=== PATIENT | male | born 1960 | race Caucasian/White ===

== ENCOUNTER 2018-05-08 22:09 | Inpatient (IN) | payer SELFPAY ==
[~2018-05-08] VITALS: Ht 160 cm; Wt 105.2 kg
[~2018-05-08 22:09] MED LIST: NO MEDS
[2018-05-09] MEDS ORDERED: MORPHINE SULFATE 4 MG/ML CPJ (NOT FOR IM USE) IV STA (02:41)
[2018-05-09] MEDS ORDERED: ONDANSETRON HCL 4MG/2ML INJ IV STA (02:41)
[2018-05-09] MEDS ORDERED: VANCOMYCIN 1 G PREMIX 200 ML IV SCH ×2 (02:45→09:45)
[2018-05-09] MEDS ORDERED: PIPERACILLIN/TAZOBACTAM 3.375GM/50ML PREMIX IV ONE (02:45)
[2018-05-09] MEDS ORDERED: TETANUS, DIPHTHERIA, PERTUSSIS VAC/PF 0.5ML (>7YR OLD) IM ONE (03:00)
[2018-05-09 03:30] LABS: BASOPHILS % 0.9 % (0.0-2.0); EOSINOPHILS % 2.4 % (0.0-5.0); HEMATOCRIT. 42.4 % (42.0-52.0); HEMOGLOBIN. 14.5 g/dL (14.0-18.0); LYMPHOCYTES % 27.1 % (20.0-50.0); MEAN CORPUSCULAR HEMOGLOBIN 30.6 pg (28.0-32.0); MEAN CORPUSCULAR VOLUME 89.3 fL (80.0-94.0); MEAN PLATELET VOLUME 8.7 fl (7.4-10.4); MONOCYTES % 10.7 % (2.0-8.0); NEUTROPHILS % 58.9 % (40.0-76.0); PLATELET 270 x1000/uL (130-400); RED BLOOD CELL COUNT 4.75 mill/uL (4.7-6.1); RED CELL DISTRIBUTION WIDTH 13.7 % (11.6-14.6)
[2018-05-09 03:43] LABS: CHLORIDE 104 mEq/L (98-107)
[2018-05-09] MEDS ORDERED: IBUPROFEN 600MG TABLET PO PRN (04:30)
[2018-05-09] MEDS ORDERED: PIPERACILLIN/TAZ 3.375G PREMIX 50 ML IV SCH (06:15)
[2018-05-09] MEDS ORDERED: DIPHENHYDRAMINE 50MG/ML VIAL IV ONE (06:15)
[2018-05-09 09:00] VITALS: BP 125/79
[2018-05-09] MEDS ORDERED: ONDANSETRON HCL 4MG/2ML INJ IV PRN (09:45)
[2018-05-09] MEDS ORDERED: ENOXAPARIN 40MG/0.4ML SYR SUBCUT SCH (09:45)
[2018-05-09] MEDS ORDERED: NITROGLYCERIN 0.4MG TABLET SL SL PRN (09:45)
[2018-05-09] MEDS ORDERED: IPRATROPIUM/ALBUTEROL 0.5-3(2.5)MG/3ML NEB INH PRN (09:45)
[2018-05-09] MEDS ORDERED: GUAIFENESIN 200MG/10ML SUGAR FREE UDC PO PRN (09:45)
[2018-05-09] MEDS ORDERED: DOCUSATE SODIUM 100MG CAPSULE PO PRN (09:45)
[2018-05-09] MEDS ORDERED: MAGNESIUM/ALUMINUM HYDROXIDE/SIMETHICONE 30ML UDC PO PRN (09:45)
[2018-05-09] MEDS ORDERED: CLONIDINE 0.1MG TABLET PO PRN (09:45)
[2018-05-09] MEDS ORDERED: ACETAMINOPHEN 325MG TABLET PO PRN (09:45)
[2018-05-09] MEDS: METOPROLOL TARTRATE 25MG TABLET PO SCH ×2 (10:00→21:00)
[2018-05-09] MEDS ORDERED: KETOROLAC 15MG/ML VIAL IV PRN (10:15)
[2018-05-09] MEDS: ZINC SULFATE 220 MG ( 50 ) CAPSULE PO SCH (11:30)
[2018-05-09] MEDS: FAMOTIDINE 20MG TABLET PO SCH ×2 (11:30→21:11)
[2018-05-09] MEDS: ASCORBIC ACID 500 MG TABLET PO SCH ×2 (11:30→21:11)
[2018-05-09] MEDS: ENOXAPARIN 40MG/0.4ML SYR SUBCUT SCH ×2 (11:31→21:11)
[2018-05-09 12:00] VITALS: BP 127/80
[2018-05-09] MEDS: VANCOMYCIN 1250MG in DEXTROSE 5% WATER 250ML IV SCH (12:19)
[2018-05-09] MEDS ORDERED: ACET-2178 MT (13:31)
[2018-05-09] MEDS ORDERED: ASPI-1153 PO (13:31)
[2018-05-09] MEDS: PIPERACILLIN/TAZ 3.375G PREMIX 50 ML IV SCH ×2 (14:09→21:11)
[2018-05-09 16:00] VITALS: BP 101/58
[2018-05-09] MEDS ORDERED: IOHEXOL-300 100 ML BOTTLE ONE (16:50)
[2018-05-09 20:00] VITALS: BP 134/72
[2018-05-09] MEDS ORDERED: INFLUENZA VIRUS VACCINE(AFLURIA) 0.5ML SYR IM ONE (20:15)
[2018-05-09] MEDS ORDERED: ZOLPIDEM TARTRATE 5MG TABLET PO PRN (21:00)
[2018-05-10] VITALS: BP 104/65
[2018-05-10] MEDS: VANCOMYCIN 1250MG in DEXTROSE 5% WATER 250ML IV SCH ×2 (00:33→10:24)
[2018-05-10] MEDS: TRAMADOL 50MG TABLET PO PRN ×2 (00:46→08:54)
[2018-05-10 04:00] VITALS: BP 111/61
[2018-05-10] MEDS: PIPERACILLIN/TAZ 3.375G PREMIX 50 ML IV SCH (05:44)
[2018-05-10 08:00] VITALS: BP 118/61
[2018-05-10] MEDS: ASCORBIC ACID 500 MG TABLET PO SCH (08:53)
[2018-05-10] MEDS: ZINC SULFATE 220 MG ( 50 ) CAPSULE PO SCH (08:53)
[2018-05-10] MEDS: FAMOTIDINE 20MG TABLET PO SCH (08:55)
[2018-05-10] MEDS: METOPROLOL TARTRATE 25MG TABLET PO SCH (08:55)
[2018-05-10] MEDS: ENOXAPARIN 40MG/0.4ML SYR SUBCUT SCH (08:55)
[2018-05-10 11:38] VITALS: BP 141/89
[2018-05-10 12:00] VITALS: BP 141/89
[2018-05-10] MEDS ORDERED: PIPERACILLIN/TAZ 3.375G PREMIX 50 ML IV SCH (15:29)
[2018-05-10] MEDS ORDERED: ENOXAPARIN 30MG/0.3ML SYR SUBCUT SCH (21:00)
== END 2018-05-10 16:00 | disposition home or self-care (01) | DRG 383 ==
LOC: ER 22:09 → 6EST 05-09 04:24 → EDBEDREQ 05-09 04:29 → EDBEDREQTM 05-09 04:29 → ENRESERV 05-09 07:18
PROVIDERS: ADMIT Internal Medicine; ATTEND Internal Medicine
DX: L03.116 Cellulitis of left lower limb (principal); Z68.41 Body mass index [BMI] 40.0-44.9, adult; E66.9 Obesity, unspecified; S80.12XA Contusion of left lower leg, initial encounter; Z53.20 Procedure and treatment not carried out because of patient's decision for unspecified reasons; K59.00 Constipation, unspecified; F17.200 Nicotine dependence, unspecified, uncomplicated; W51.XXXA Accidental striking against or bumped into by another person, initial encounter; Y99.8 Other external cause status; Y93.66 Activity, soccer; Y92.322 Soccer field as the place of occurrence of the external cause; Z71.3 Dietary counseling and surveillance
CPT/HCPCS: 36415; 73590; 73701; 80061; 83036; 83605; 87070; 87077; 87186; 90471; 90686; 90715; 93971; 96361; 96374; 96375; 99285; J1200; J1650; J2270; J2405; J2543; J3370; J7060; Q9967

== ENCOUNTER 2024-10-25 17:52 | Emergency (ER) | payer SELFPAY ==
[~2024-10-25] VITALS: Ht 160 cm; Wt 98.0 kg
[~2024-10-25 17:52] MED LIST changes: +ASPI-1153 PO; +TOPUD MT
[2024-10-25 17:57] VITALS: O2SAT 98
[2024-10-25 17:58] VITALS: BP 133/84; PULSE 95; RESP 18; TEMP 36.9; O2SAT 98
[2024-10-25] MEDS: ACETAMINOPHEN 500MG TABLET PO ONE (18:55)
[2024-10-25] MEDS: TETANUS, DIPHTHERIA, PERTUSSIS VAC/PF 0.5ML (>10YR OLD) IM ONE (18:55)
[2024-10-25] MEDS: BACITRACIN ZINC OINT UDPKT TOP ONE (18:56)
[2024-10-25] MEDS ORDERED: AMOX1TAB16 MT (19:58)
[2024-10-25] MEDS ORDERED: ACET-2708 MT (19:58)
== END 2024-10-25 20:53 | disposition home or self-care (01) ==
LOC: ER 17:52
DX: S81.832A Puncture wound without foreign body, left lower leg, initial encounter (principal); W54.0XXA Bitten by dog, initial encounter; Y93.89 Activity, other specified; Y92.89 Other specified places as the place of occurrence of the external cause; Y99.8 Other external cause status
CPT/HCPCS: 73090; 73120; 73590; 90715; 29125; 90471; 99284; Z7610

== ENCOUNTER 2024-10-31 12:05 | Inpatient (IN) | payer MEDICAID ==
[~2024-10-31] VITALS: Ht 167.6 cm; Wt 98.9 kg
[~2024-10-31 12:05] MED LIST changes: +ACET-2708 MT; +AMOX1TAB16 MT
[2024-10-31 12:23] VITALS: O2SAT 98
[2024-10-31 12:59] LABS: BASOPHILS % 0.7 % (0.0-2.0); EOSINOPHILS % 1.4 % (0.0-5.0); HEMATOCRIT. 31.0 % (42.0-52.0); HEMOGLOBIN. 10.5 g/dL (14.0-18.0); LYMPHOCYTES % 16.2 % (20.0-50.0); MEAN PLATELET VOLUME 9.1 fl (7.4-10.4); MONOCYTES % 7.3 % (2.0-8.0); NEUTROPHILS % 74.4 % (40.0-76.0); PLATELET 250 x1000/uL (130-400); RED BLOOD CELL COUNT 3.49 mill/uL (4.7-6.1); RED CELL DISTRIBUTION WIDTH 13.9 % (11.6-14.6)
[2024-10-31 13:07] LABS: INR 1.0
[2024-10-31 13:13] LABS: CREATININE 1.1 mg/dL (0.6-1.3); TROPONIN I HIGH SENSITIVITY < 4 ng/L (3.0-53); UREA NITROGEN BLOOD 26 mg/dL (9-23)
[2024-10-31 13:15] LABS: ASPARTATE AMINOTRANSFERASE 14 IU/L (<34); BILIRUBIN DIRECT 0.1 mg/dL (<=3.0); BILIRUBIN TOTAL 0.4 mg/dL (0.1-1.0); PROTEIN TOTAL 7.2 g/dL (6.0-8.3)
[2024-10-31] MEDS: PANTOPRAZOLE SODIUM 40 MG/VIAL IV ONE (13:36)
[2024-10-31] MEDS: IOHEXOL-300 100 ML BOTTLE ONE (14:25)
[2024-10-31] MEDS: PANTOPRAZOLE 80 MG in SODIUM CHLORIDE 0.9% 100 ML IV SCH (15:08)
[2024-10-31] MEDS ORDERED: ONDANSETRON HCL 4MG/2ML INJ IV PRN (15:15)
[2024-10-31] MEDS ORDERED: ACETAMINOPHEN 325MG TABLET PO PRN (15:15)
[2024-10-31] MEDS ORDERED: DOCUSATE SODIUM 100MG CAPSULE PO PRN (15:15)
[2024-10-31] MEDS ORDERED: IPRATROPIUM/ALBUTEROL 0.5-3(2.5)MG/3ML NEB HHN PRN (15:15)
[2024-10-31] MEDS ORDERED: GUAIFENESIN 200MG/10ML SUGAR FREE UDC PO PRN (15:15)
[2024-10-31] MEDS ORDERED: MAGNESIUM/ALUMINUM HYDROXIDE/SIMETHICONE 30ML UDC PO PRN (15:15)
[2024-10-31] MEDS ORDERED: CLONIDINE 0.1MG TABLET PO PRN (15:15)
[2024-10-31] MEDS: PIPERACILLIN/TAZO 3.375G/50ML 50 ML IV NR (15:52)
[2024-10-31] MEDS ORDERED: DEXTROSE 50% WATER 50ML SYRINGE IV PRN (16:00)
[2024-10-31] MEDS: IOHEXOL-350 100 ML BOTTLE ONE ×2 (16:04→23:14)
[2024-10-31 16:54] LABS: FOLIC ACID (FOLATE) SERUM > 20.00 ng/mL (>5.38); VITAMIN B12 SERUM 607 pg/mL (211-911)
[2024-10-31 17:00] VITALS: BP 130/89; PULSE 85; RESP 15; TEMP 36.7516
[2024-10-31] MEDS ORDERED: VANCOMYCIN 1.5GM PMX (XELLIA) 300 ML IV NR (17:00)
[2024-10-31 17:25] LABS: TRIGLYCERIDE 239.0 mg/dL (0-150)
[2024-10-31 17:26] LABS: LDL CHOLESTEROL 94.0 mg/dL (5-100)
[2024-10-31] MEDS: SUCRALFATE 1G TABLET PO SCH (17:30)
[2024-10-31] MEDS: BLOOD SUGAR DIAGNOSTIC STRIP TEST SCH (17:54)
[2024-10-31 18:00] VITALS: BP 123/76; PULSE 107; RESP 23; O2SAT 99
[2024-10-31] MEDS: INSULIN LISPRO 100 UNITS/ML SUBCUT SCH (18:00)
[2024-10-31 19:18] LABS: INR 1.0
[2024-10-31 20:00] VITALS: BP 113/79; PULSE 101; RESP 13; O2SAT 99
[2024-10-31] MEDS: PANTOPRAZOLE SODIUM 40 MG/VIAL IV SCH (21:39)
[2024-10-31] MEDS: PIPERACILLIN/TAZO 3.375G/50ML 50 ML IV SCH (21:40)
[2024-10-31 22:00] VITALS: BP 112/87; PULSE 98; RESP 25; TEMP 36.9; O2SAT 99
[2024-10-31] MEDS: VANCOMYCIN 1.5GM PMX (XELLIA) 300 ML IV NR (22:00)
[2024-10-31 23:54] LABS: CREATINE KINASE MB FRACTION < 0.5 ng/mL (0.5-3.6); TROPONIN I HIGH SENSITIVITY < 4 ng/L (3.0-53)
[2024-11-01] VITALS (9 sets, daily range): BP systolic 92–135; BP diastolic 59–83; PULSE 84–100; RESP 16–22; TEMP 36.4–36.9; O2SAT 97–100
[2024-11-01] MEDS: ACETAMINOPHEN 325MG TABLET PO PRN (00:14)
[2024-11-01] MEDS: LACTATED RINGERS 1,000 ML IV SCH (03:35)
[2024-11-01] MEDS: VANCOMYCIN 750MG PREMIX 150 ML IV SCH ×2 (07:25→11:09)
[2024-11-01 07:57] LABS: CLARITY URINE CLEAR (CLEAR); COLOR URINE YELLOW (YELLOW); GLUCOSE URINE NEGATIVE (NEGATIVE); KETONES URINE NEGATIVE (NEGATIVE); LEUKOCYTE ESTERASE URINE NEGATIVE (NEGATIVE); NITRITE URINE NEGATIVE (NEGATIVE); OCCULT BLOOD URINE NEGATIVE (NEGATIVE); PH URINE 5.5 (4.5-8.0); PROTEIN URINE TRACE (NEGATIVE); SPECIFIC GRAVITY URINE 1.075 (1.005-1.030); UROBILINOGEN URINE 0.2 E.U./dL (0.2-1.0)
[2024-11-01] MEDS: MULTIVITAMINS,THER W-MINERALS TABLET PO SCH (08:06)
[2024-11-01 08:20] LABS: *AMPHETAMINES SCREEN URINE NEGATIVE (NEGATIVE); *BENZODIAZEPINES SCREEN URINE NEGATIVE (NEGATIVE)
[2024-11-01 08:21] LABS: *BARBITURATES SCREEN URINE NEGATIVE (NEGATIVE); *COCAINE SCREEN URINE NEGATIVE (NEGATIVE); CANNABINOID URINE SCREEN NEGATIVE (NEGATIVE); METHADONE URINE SCREEN NEGATIVE (NEGATIVE); OPIATES URINE SCREEN NEGATIVE (NEGATIVE); PHENCYCLIDINE URINE SCREEN NEGATIVE (NEGATIVE)
[2024-11-01 08:22] LABS: ECSTASY MDMA SCREEN URINE NEGATIVE (NEGATIVE)
[2024-11-01 08:23] LABS: CREATININE 1.0 mg/dL (0.6-1.3)
[2024-11-01 08:24] LABS: CREATINE KINASE MB FRACTION < 0.5 ng/mL (0.5-3.6); LDL CHOLESTEROL 83 mg/dL (5-100); TRIGLYCERIDE 225 mg/dL (0-150); TROPONIN I HIGH SENSITIVITY < 4 ng/L (3.0-53); UREA NITROGEN BLOOD 24 mg/dL (9-23)
[2024-11-01 08:28] LABS: T4 FREE 1.24 ng/dL (0.89-1.76)
[2024-11-01 08:31] LABS: HEMATOCRIT. 28.7 % (42.0-52.0); HEMOGLOBIN. 10.1 g/dL (14.0-18.0); MEAN PLATELET VOLUME 9.5 fl (7.4-10.4); PLATELET 229 x1000/uL (130-400); RED BLOOD CELL COUNT 3.23 mill/uL (4.7-6.1); RED CELL DISTRIBUTION WIDTH 13.8 % (11.6-14.6)
[2024-11-01 10:31] LABS: BACTERIA URINE NONE SEEN; RBC URINE NONE SEEN /hpf (0-2); SQUAMOUS EPITHELIAL CELL URINE NONE SEEN /lpf (RARE/1+); URIC ACID CRYSTALS URINE 3+ /lpf; WBC URINE 0-2 /hpf (0-2)
[2024-11-01 17:47] LABS: EOSINOPHILS % MANUAL 1.0 % (0.0-5.0); LYMPHOCYTES % MANUAL 35.0 % (20.0-50.0); MONOCYTES % MANUAL 9.0 % (2.0-8.0); NEUTROPHILS % MANUAL 55.0 % (45.0-75.0); PLATELET ESTIMATE NORMAL
[2024-11-01] MEDS: PREDNISONE 20MG TABLET PO SCH (18:25)
[2024-11-01 22:09] LABS: ASPARTATE AMINOTRANSFERASE 15 IU/L (<34); BILIRUBIN DIRECT 0.2 mg/dL (<=3.0); BILIRUBIN TOTAL 0.5 mg/dL (0.1-1.0); PROTEIN TOTAL 6.7 g/dL (6.0-8.3)
[2024-11-01] MEDS: ATORVASTATIN CALCIUM 40MG TABLET PO SCH (22:35)
[2024-11-02] VITALS: BP 133/82; PULSE 88; RESP 20; TEMP 36.7; O2SAT 99
[2024-11-02 04:00] VITALS: BP 112/69; PULSE 87; RESP 24; TEMP 36.7; O2SAT 90
[2024-11-02 07:59] LABS: PLATELET 241 x1000/uL (130-400); RED BLOOD CELL COUNT 2.99 mill/uL (4.7-6.1); RED CELL DISTRIBUTION WIDTH 13.5 % (11.6-14.6)
[2024-11-02 08:08] LABS: CREATININE 0.9 mg/dL (0.6-1.3); UREA NITROGEN BLOOD 15 mg/dL (9-23)
[2024-11-02] MEDS ORDERED: SUCR1TAB PO (12:16)
[2024-11-02] MEDS ORDERED: PROT40 PO (12:16)
[2024-11-02] MEDS ORDERED: P20 PO (12:16)
[2024-11-02] MEDS ORDERED: LIP40 MT (12:22)
[2024-11-02] MEDS: PREDNISONE 20MG TABLET PO NR (14:21)
[2024-11-02 14:41] VITALS: BP 143/85; PULSE 104; RESP 18; TEMP 98
[2024-11-02] MEDS ORDERED: VANCOMYCIN 1GM PMX (XELLIA) 200 ML IV SCH (18:00)
== END 2024-11-02 16:47 | disposition home or self-care (01) | DRG 254 ==
LOC: ER 12:05 → EDBEDREQ 12:53 → 5EST 13:39 → EDBEDREQTM 14:08 → EDBEDREQ 14:08 → ENRESERV 14:37 → 5EST 17:19
PROVIDERS: ADMIT Internal Medicine; ATTEND Internal Medicine
DX: K92.1 Melena (principal); I67.1 Cerebral aneurysm, nonruptured; K76.0 Fatty (change of) liver, not elsewhere classified; L03.116 Cellulitis of left lower limb; S81.852A Open bite, left lower leg, initial encounter; G51.0 Bell's palsy; Z68.35 Body mass index [BMI] 35.0-35.9, adult; D64.9 Anemia, unspecified; K76.89 Other specified diseases of liver; E66.9 Obesity, unspecified; R73.9 Hyperglycemia, unspecified; E78.5 Hyperlipidemia, unspecified; F17.210 Nicotine dependence, cigarettes, uncomplicated; W54.0XXA Bitten by dog, initial encounter; Y93.89 Activity, other specified; Y92.89 Other specified places as the place of occurrence of the external cause; Y99.8 Other external cause status
CPT/HCPCS: 36415; 70496; 70498; 70551; 74177; 80048; 80061; 80076; 80202; 80305; 81003; 82270; 82550; 82553; 82607; 82728; 82746; 82962; 83036; 83540; 83550; 83605; 84145; 84439; 84443; 84484; 85025; 85027; 85044; 85651; 86850; 86900; 87070; 92610; 93005; 93970; 97162; 97166; 97535; 99291; J1815; J2470; J2543; J3373; J7050; J7512; Q9967

== ENCOUNTER 2024-12-04 12:56 | Emergency (ER) | payer MEDICAID ==
[~2024-12-04] VITALS: Ht 170.2 cm; Wt 98.0 kg
[~2024-12-04 12:56] MED LIST changes: -ACET-2708 MT; +LIP40 MT; -NO MEDS; +P20 PO; +PROT40 PO; +SUCR1TAB PO; -TOPUD MT
[2024-12-04 13:41] VITALS: O2SAT 99
[2024-12-04] MEDS: KETOROLAC 30MG/ML VIAL IM ONE (17:09)
[2024-12-04] MEDS ORDERED: IBUP-1455 MT (18:18)
[2024-12-04 18:39] VITALS: BP 116/70; PULSE 80; RESP 20; TEMP 36.8; O2SAT 99
== END 2024-12-04 18:39 | disposition home or self-care (01) ==
LOC: ER 14:00
DX: S50.352A Superficial foreign body of left elbow, initial encounter (principal); S60.552A Superficial foreign body of left hand, initial encounter; M17.12 Unilateral primary osteoarthritis, left knee; G62.9 Polyneuropathy, unspecified; Z79.899 Other long term (current) drug therapy; W54.0XXA Bitten by dog, initial encounter; Y93.89 Activity, other specified; Y92.89 Other specified places as the place of occurrence of the external cause; Y99.8 Other external cause status
CPT/HCPCS: 99284; 73080; 73110; 73562; 96372; J1885